=== PATIENT | male | born 1995 | race Caucasian/White ===

== ENCOUNTER 2017-08-22 19:45 | Emergency (ER) | payer SELFPAY ==
[~2017-08-22] VITALS: Ht 193 cm; Wt 80.6 kg
[2017-08-22 19:48] VITALS: BP 127/80
== END 2017-08-22 23:49 | disposition home or self-care (01) ==
LOC: EME 19:45
PROC: 0HQ1XZZ Repair Face Skin, External Approach (ICD-10-PCS; principal; 2017-08-22)
DX: S01.112A Laceration without foreign body of left eyelid and periocular area, initial encounter (principal); W10.9XXA Fall (on) (from) unspecified stairs and steps, initial encounter; F17.200 Nicotine dependence, unspecified, uncomplicated
CPT/HCPCS: 99281; 99283